=== PATIENT | female | born 1985 | race Caucasian/White ===

== ENCOUNTER 2017-07-27 01:26 | Inpatient (IN) | payer BC ==
[2017-07-27] VITALS (27 sets, daily range): BP systolic 108–150; BP diastolic 55–76; PULSE 59–99; TEMP 97.4–98.3
[~2017-07-27] VITALS: Ht 172.7 cm; Wt 85.0 kg
[2017-07-27] MEDS ORDERED: PRENATAL1 TA7 PO (01:45)
[2017-07-27 02:24] LABS: BASO % 0.3 % (0.0-2.0); EOS # 0.1 (0.0-0.7); EOS % 0.7 % (0-4.0); GRAN # 6.4 (1.4-6.5); GRAN % 69.2 % (42.2-75.2); HEMOGLOBIN 12.6 g/dl (12.5-16.0); LYMPH % 21.4 % (20.0-51.0); MEAN CELL VOLUME 91 fl (80.0-100.0); MEAN CORPUSCULAR HEMOGLOBIN 31 pg (27.0-31.0); MEAN CORPUSCULAR HGB CONC 34 g/dl (33.0-37.0); MEAN PLATELET VOLUME 11.9 fl (7.4-10.4); MONO # 0.7 (0.1-0.6); MONO % 7.9 % (1.7-9.3); PLATELET COUNT 162 K/mm3 (130-400); RED BLOOD COUNT 4.08 M/mm3 (4.10-5.30); WHITE BLOOD COUNT 9.2 K/mm3 (4.8-10.8)
[2017-07-27 02:39] LABS: ADJUSTED CALCIUM 10.2 mg/dL (8.4-10.2); ALBUMIN 3.4 gm/dL (3.5-5.0); BILIRUBIN,TOTAL 0.3 mg/dL (0.0-1.0); CALCIUM 9.7 mg/dL (8.4-10.2); CREATININE, serum 0.85 mg/dL (0.52-1.25); POTASSIUM 3.6 mmol/L (3.4-5.0); TOTAL PROTEIN 6.2 gm/dL (6.4-8.2)
[2017-07-28 03:10] VITALS: BP 117/61; PULSE 74; TEMP 98.2
[2017-07-28 06:30] VITALS: BP 125/70; PULSE 77; TEMP 97.6
[2017-07-28 09:16] LABS: HEMOGLOBIN 10.4 g/dl (12.5-16.0)
[2017-07-28] MEDS ORDERED: PERCOCET 325 MG1 TA2 PO (11:09)
[2017-07-28] MEDS ORDERED: MOTRIN 800800 MG/TAB PO (11:09)
[2017-07-28 16:20] VITALS: BP 127/69; PULSE 92; TEMP 98.1
[2017-07-28 20:00] VITALS: BP 134/74; PULSE 91; TEMP 97.2
[2017-07-29 08:20] VITALS: BP 134/78; PULSE 87; TEMP 97.4
== END 2017-07-29 12:00 | disposition home or self-care (01) | DRG 775 ==
LOC: LDRO 01:26 → OB 01:58 → LDR 01:58 → OB 09:28
PROVIDERS: Obstetrics & Gynecology
PROC: 10D07Z6 Extraction of Products of Conception, Vacuum, Via Natural or Artificial Opening (ICD-10-PCS; principal; 2017-07-27)
PROC: 0KQM0ZZ Repair Perineum Muscle, Open Approach (ICD-10-PCS; 2017-07-27)
DX: O76 Abnormality in fetal heart rate and rhythm complicating labor and delivery (principal); O43.123 Velamentous insertion of umbilical cord, third trimester; O70.1 Second degree perineal laceration during delivery; Z3A.39 39 weeks gestation of pregnancy; Z37.0 Single live birth
CPT/HCPCS: J2590; J2795; J7120

== ENCOUNTER 2021-08-06 16:26 | Emergency (ER) | payer BC ==
[~2021-08-06] VITALS: Ht 172.7 cm; Wt 81.8 kg
[~2021-08-06 16:26] MED LIST: MOTRIN 800800 MG/TAB PO; MULTIVITAMIN FO1 CAP PO; PERCOCET 325 MG1 TA2 PO; PRENATAL1 TA7 PO
[2021-08-06 16:32] VITALS: TEMP 97.6
[2021-08-06 17:16] LABS: BASO % 0.7 % (0.0-2.0); EOS # 0.1 K/mm3 (0.0-0.7); EOS % 1.8 % (0-4.0); GRAN # 3.9 K/mm3 (1.4-6.5); GRAN % 64.9 % (42.2-75.2); HEMOGLOBIN 13.8 g/dl (12.5-16.0); LYMPH # 1.4 K/mm3 (1.2-3.4); LYMPH % 23.9 % (20.0-51.0); MEAN CELL VOLUME 91 fl (80.0-100.0); MEAN CORPUSCULAR HEMOGLOBIN 29 pg (27.0-31.0); MEAN CORPUSCULAR HGB CONC 32 g/dl (33.0-37.0); MEAN PLATELET VOLUME 10.2 fl (7.4-10.4); MONO # 0.5 K/mm3 (0.1-0.6); MONO % 8.5 % (1.7-9.3); PLATELET COUNT 210 K/mm3 (130-400); RED BLOOD COUNT 4.74 M/mm3 (4.10-5.30); REDCELL DISTRIBUTION WIDTH-CV 12.1 % (11.5-14.5)
[2021-08-06 17:33] LABS: ALBUMIN 3.5 gm/dL (3.5-5.0); BILIRUBIN,TOTAL 0.2 mg/dL (0.2-1.2); CALCIUM 9.2 mg/dL (8.4-10.2); CREATININE, serum 0.89 mg/dL (0.57-1.11); POTASSIUM 3.7 mmol/L (3.5-4.5); TOTAL PROTEIN 6.2 gm/dL (6.2-8.1)
[2021-08-06 19:58] VITALS: BP 140/97; PULSE 88
== END 2021-08-06 19:58 | disposition home or self-care (01) ==
LOC: COL.ER 16:26
PROVIDERS: Student in an Organized Health Care Education/Training Program
DX: O03.9 Complete or unspecified spontaneous abortion without complication (principal); O42.90 Premature rupture of membranes, unspecified as to length of time between rupture and onset of labor, unspecified weeks of gestation; Z3A.10 10 weeks gestation of pregnancy